=== PATIENT | male | born 1995 | race Caucasian/White ===

== ENCOUNTER 2021-01-16 19:51 | Emergency (ER) | payer OTHER ==
[2021-01-16] MEDS ORDERED: Tetracaine HCl/PF 0.5% 4 ML Bottle EYERT ONE (20:11)
[2021-01-16] MEDS ORDERED: Fluorescein 1 MG Ophth Strip EYERT ONE (20:12)
--- NOTE | 2021-01-16 20:24 | EDM.PDOC ---
ED HPI GENERAL MEDICAL PROBLEM - General Chief Complaint: ENT Problem Stated Complaint: STUFF IN THE RIGHT EYE Time Seen by Provider: 01/16/21 20:24 Source of Information: Reports: Patient, RN, RN Notes Reviewed History Limitations: Reports: No Limitations - History of Present Illness INITIAL COMMENTS - FREE TEXT/NARRATIVE: Patient is a 25-year-old male who presents to ER with complaint of foreign object in the right eye. Patient states he was cutting wood on the job site at [facility] when the wind blew sawdust into his right eye. He states he is flush the right eye but still feels as though there is something in there. Denies any blurred or double vision. Onset: Today, Sudden Right Eye Pain Score (Numeric/FACES): 1 - Related Data Allergies Allergy/AdvReac Type Severity Reaction Status Date / Time No Known Allergies Allergy Verified 01/16/21 20:37 Home Meds: Home Meds hydroCHLOROthiazide [Hydrochlorothiazide] 12.5 mg PO .Q2DAYS 01/16/21 [History] lisinopriL [Lisinopril] 10 mg PO BID 01/16/21 [History] ED ROS GENERAL - Review of Systems Review Of Systems: Comprehensive ROS is negative, except as noted in HPI. ED EXAM GENERAL W FULL EYE - Physical Exam Exam: See Below Exam Limited By: No Limitations General Appearance: Alert, WD/WN, No Apparent Distress Eye Exam: Bilateral Eye: EOMI, Normal Inspection With Correction: No Eyelids: Bilateral: Normal Appearance Conjunctiva & Sclera: Right: Injected, Left: Normal Appearance Cornea Exam: Right: Corneal Abrasion Extraocular Movements: Bilateral: Intact Pupils: Normal Accommodation Pupillary Size: Bilateral: 3 mm Pupillary Reaction: Bilateral: Brisk Ears: Normal External Exam, Hearing Grossly Normal Nose: Normal Inspection, Normal Mucosa, No Blood Throat/Mouth: Normal Inspection, Normal Lips, Normal Teeth, Normal Gums, Normal Oropharynx, Normal Voice, No Airway Compromise Head: Atraumatic, Normocephalic Neck: Normal Inspection, Supple, Non-Tender, Full Range of Motion Respiratory/Chest: No Respiratory Distress, Lungs Clear, Normal Breath Sounds, No Accessory Muscle Use, Chest Non-Tender Cardiovascular: Normal Peripheral Pulses, Regular Rate, Rhythm, No Edema, No Gallop, No JVD, No Murmur, No Rub GI/Abdominal: Normal Bowel Sounds, Soft, Non-Tender (Male) Exam: Deferred Rectal (Males) Exam: Deferred Back Exam: Normal Inspection, Full Range of Motion, NT Extremities: Normal Inspection, Normal Range of Motion, Non-Tender, Normal Capillary Refill, No Pedal Edema Neurological: Alert, Oriented, CN II-XII Intact, Normal Cognition, Normal Gait, Normal Reflexes, No Motor/Sensory Deficits Psychiatric: Normal Affect, Normal Mood Skin Exam: Warm, Dry, Intact, Normal Color, No Rash Lymphatic: No Adenopathy ED EYE w/ Add Procedure - Eye Procedure Alcaine Drops Administered: Yes Eye FB Removal: Other (no foreign material noted) Eye Irrigated w/ Saline (ccs): 80 Antibiotic Oinment/Drps Admin: Right Eye Progress: Corneal abrasion to the right eye. No foreign material noted. Course - Vital Signs Last Recorded V/S: Last Vital Signs Temp 98.3 F 01/16/21 20:28 Pulse 57 L 01/16/21 20:28 Resp 16 01/16/21 20:28 BP 138/96 H 01/16/21 20:28 Pulse Ox 98 01/16/21 20:28 - Orders/Labs/Meds Meds: Medications Discontinued Medications Generic Name Dose Route Start Last Admin Trade Name Freq PRN Reason Stop Dose Admin Fluorescein Sodium 1 mg 01/16/21 20:12 01/16/21 20:17 Fluorescein 1 Mg Ophth Strip EYERT 01/16/21 20:13 1 mg ONETIME ONE Administration Tetracaine HCl 1 ml 01/16/21 20:11 01/16/21 20:17 Tetracaine Hcl/Pf 0.5% 4 Ml Bottle EYERT 01/16/21 20:12 2 drop ASDIRECTED ONE Administration Tobramycin/Dexamethasone 1 ml 01/16/21 20:45 01/16/21 20:52 Dexamethasone/Tobramycin 0.1-0.3% Ophth Susp 2.5 Ml Bottle EYERT 1 drop Q4H GRANT Administration Departure - Departure Time of Disposition: 20:34 Disposition: Home, Self-Care 01 Condition: Good Clinical Impression: Corneal abrasion, right Qualifiers: Encounter type: initial encounter Qualified Code(s): S05.01XA - Injury of conjunctiva and corneal abrasion without foreign body, right eye, initial encounter - Discharge Information *PRESCRIPTION DRUG MONITORING PROGRAM REVIEWED*: No *COPY OF PRESCRIPTION DRUG MONITORING REPORT IN PATIENT ZIGGY: No Instructions: Corneal Abrasion, [id number] Referrals: PCP,None [Primary Care Provider] - Forms: ED Department Discharge Additional Instructions: TobraDex 1 to 2 drops in the right eye every 4-6 hours for 2 to 3 days If no improvement follow-up with optometry
[2021-01-16] MEDS ORDERED: Dexamethasone/Tobramycin 0.1-0.3% Ophth Susp 2.5 ML Bottle EYERT SCH (20:45)
== END 2021-01-16 20:50 | disposition home or self-care (01) ==
LOC: DL.ED 19:51
DX: S05.01XA Injury of conjunctiva and corneal abrasion without foreign body, right eye, initial encounter (principal); Z79.899 Other long term (current) drug therapy; W22.8XXA Striking against or struck by other objects, initial encounter
CPT/HCPCS: 99283; A9270-GY